=== PATIENT | female | born 1950 | race Caucasian/White ===

== ENCOUNTER 2017-05-10 09:38 | Day surgery (SDC) | payer MEDICARE, BC ==
[~2017-05-10 09:38] MED LIST: Metoclopramide 10 MG/2 ML SDV IV PRN
[2017-05-10] MEDS: Sodium Chloride 0.9% 10 ML Syringe FLUSH PRN (11:00)
[2017-05-10] MEDS: Sodium Chloride 0.9% 1,000 ML IV SCH (11:00)
[2017-05-10] MEDS ORDERED: Propofol 1,000 MG/100 ML SDV ONE (13:30)
[2017-05-10] MEDS ORDERED: Midazolam 1 MG/ML 5 ML SDV ONE (13:30)
--- NOTE | 2017-05-10 14:42 | OR ---
DATE OF OPERATION: 05/10/2017 PREOPERATIVE DIAGNOSES: Surveillance colonoscopy, prior history of polyps, positive family history. POSTOPERATIVE DIAGNOSIS: Normal colonoscopy. OPERATION: Surveillance colonoscopy, prior history of polyps, and positive family history. COMPLICATIONS: None. DRAINS: None. SPECIMENS: None. ESTIMATED BLOOD LOSS: 0. ANESTHESIA: General propofol anesthesia. INDICATION: Ms. Randall is a 66-year-old female here for her 5 yearly surveillance colonoscopy. She has a prior history of polyps and a positive family history for colon cancer. The above-mentioned procedure was explained. The risks, benefits, and complications were explained. The patient understood and agreed and was brought to the operating room. DESCRIPTION OF PROCEDURE: The patient was brought to the operating room, placed in the left lateral decubitus position on the operating room table. Satisfactory general propofol anesthesia was administered. We began by performing a rectal examination, which revealed some anal skin tags externally which suggestive previous external hemorrhoids. I then placed the endoscope by finger introduction into the rectum and subsequently advanced this to the level of the cecum. Cecum was identified by the appendiceal orifice, cecal strap, and ileocecal valve. Careful evaluation of mucosa was performed on withdrawal, which revealed no diverticula, no telangiectasias, no polyps, or neoplastic growths. I did perform a retroflexion maneuver within the rectum, which revealed some old internal hemorrhoidal tag, otherwise no gross internal hemorrhoids identified. The remainder of the rectum was within normal limits. The colon was then subsequently decompressed and the endoscope was withdrawn. The patient tolerated the procedure well. There were no complications. Instrument count was correct. The patient was awoken in the OR and taken to the PACU for recovery. Recommend 5 year followup colonoscopy. CHAYA/CECELIA /[id number]
== END 2017-05-10 14:57 | disposition home or self-care (01) ==
LOC: LB.SDS 09:38
PROVIDERS: ATTEND Surgery
DX: Z12.11 Encounter for screening for malignant neoplasm of colon (principal); K64.8 Other hemorrhoids; Z86.010 Personal history of colon polyps; Z80.0 Family history of malignant neoplasm of digestive organs; M10.9 Gout, unspecified; I10 Essential (primary) hypertension; E88.81 Metabolic syndrome and other insulin resistance; E78.5 Hyperlipidemia, unspecified; Z88.0 Allergy status to penicillin; Z79.82 Long term (current) use of aspirin; Z79.899 Other long term (current) drug therapy; Z98.890 Other specified postprocedural states
CPT/HCPCS: J2250; J3490; J7040; J7050

== ENCOUNTER 2017-06-22 07:01 | Emergency (ER) | payer MEDICARE, BC ==
--- NOTE | 2017-06-22 08:02 | EDM.PDOC ---
ED HPI GENERAL MEDICAL PROBLEM - General Chief Complaint: Syncope Stated Complaint: SYNCOPY Time Seen by Provider: 06/22/17 07:15 Source of Information: Reports: Patient History Limitations: Reports: No Limitations - History of Present Illness INITIAL COMMENTS - FREE TEXT/NARRATIVE: According to patient she woke up in the morning felt fine and she went to work at [employer] in [facility]. As she was cooking in the kitchen, she felt dizzy and weak, felt like she was passing out and soon the feeling went away.The whole episodes lasted for lest than 5 seconds. Pt did not pass out, felt weak. Hence she did come into emergency room. There was no chest pain, palpitations, vertigo, nausea or vomiting asso with it. No fever or chills. In the emergency room pt claims she feels fine. She is not feeling dizzy or tired. Onset: Today Onset Date: 06/22/17 Onset Time: 06:00 Severity: Mild Improves with: Reports: None Worsens with: Reports: None Associated Symptoms: Reports: Weakness. Denies: Confusion, Chest Pain, Cough, Diaphoresis, Fever/Chills, Headaches, Nausea/Vomiting, Rash, Seizure, Shortness of Breath, Syncope - Related Data Allergies Allergy/AdvReac Type Severity Reaction Status Date / Time Fish Containing Products Allergy Respiratory Verified 06/22/17 07:21 Distress Penicillins Allergy Rash Verified 06/22/17 07:21 Home Meds: Home Meds Fenofibrate Nanocrystallized [Fenofibrate] 48 mg PO DAILY 05/09/17 [History] Lisinopril 40 mg PO DAILY 05/09/17 [History] Past Medical History HEENT History: Reports: None Cardiovascular History: Reports: Hypertension [employer] History: Reports: Musculoskeletal History: Reports: Arthritis, Other (See Below) Other Musculoskeletal History: torn meniscus right knee, left knee needs replacement - Infectious Disease History Infectious Disease History: Reports: Chicken Pox, Mumps - Past Surgical History HEENT Surgical History: Reports: Tonsillectomy Social & Family History - Family History Family Medical History: Noncontributory - Caffeine Use Caffeine Use: Reports: Coffee, Soda, Tea ED ROS GENERAL - Review of Systems Review Of Systems: See Below Constitutional: Denies: Fever, Chills HEENT: Denies: Rhinitis, Throat Pain, Throat Swelling Respiratory: Denies: Shortness of Breath, Wheezing, Pleuritic Chest Pain, Cough , Sputum Cardiovascular: Reports: Lightheadedness. Denies: Chest Pain, Dyspnea on Exertion, Edema, Orthopnea, Syncope GI/Abdominal: Denies: Abdominal Pain, Nausea, Vomiting : Denies: Dysuria, Flank Pain, Frequency Musculoskeletal: Denies: Joint Pain, Joint Swelling Skin: Denies: Bruising, Pruritis, Rash, Erythema ED EXAM, GENERAL - Physical Exam Exam: See Below Exam Limited By: No Limitations General Appearance: Alert, WD/WN, No Apparent Distress Eye Exam: Bilateral Eye: EOMI, PERRL Ears: Normal External Exam, Normal Canal, Hearing Grossly Normal, Normal TMs Ear Exam: Bilateral Ear: Auricle Normal, Canal Normal, TM normal Nose: Normal Inspection, Normal Mucosa, No Blood Throat/Mouth: Normal Inspection, Normal Lips, Normal Teeth, Normal Gums, Normal Oropharynx, Normal Voice, No Airway Compromise Head: Atraumatic, Normocephalic Neck: Normal Inspection, Supple, Non-Tender, Full Range of Motion Respiratory/Chest: No Respiratory Distress, Lungs Clear, Normal Breath Sounds, No Accessory Muscle Use, Chest Non-Tender Cardiovascular: Normal Peripheral Pulses, Regular Rate, Rhythm, No Edema, No Gallop, No JVD, No Murmur, No Rub GI/Abdominal: Normal Bowel Sounds, Soft, Non-Tender, No Organomegaly, No Distention, No Abnormal Bruit, No Mass Extremities: Normal Inspection, Normal Range of Motion, Non-Tender, Normal Capillary Refill, No Pedal Edema Neurological: Alert, Oriented, CN II-XII Intact, Normal Cognition, Normal Gait, Normal Reflexes, No Motor/Sensory Deficits Psychiatric: Normal Affect, Normal Mood Course - Vital Signs Text/Narrative:: Pt's Clinical exam is normal. Orthostatic blood pressure appear normal. Also her Blood sugar was 122. Pt's EKG is in normal sinus rhythm. Pt feels fine and happy. CBC and CMP appear normal other than her creat is 1.6. Pt reassured that she might have had slight vaso-vagal episode in the morning. I have not done CT head, as her neuro exam appears normal and pt is not in any discomfort or distress at this point. Pt reassured. advised to drink plenty of fluids and rest. If the symptoms reoccur, advised to follow up in the clinic for recheck of the creatinine. Last Recorded V/S: Last Vital Signs Temp 97.1 F 06/22/17 07:21 Pulse 69 06/22/17 07:21 Resp 18 06/22/17 07:21 BP 130/66 06/22/17 07:21 Pulse Ox 100 06/22/17 07:21 - Orders/Labs/Meds Orders: Active Orders 24 hr Category Date Time Status EKG Documentation Completion [RC] ASDIRECTED Care 06/22/17 07:30 Active Labs: Laboratory Tests 06/22/17 06/22/17 06/22/17 Range/Units 06:59 07:30 07:30 WBC 8.4 (4.0-11.0) K/uL RBC 4.39 (3.80-5.80) M/uL Hgb 13.1 (11.5-16.5) g/dL Hct 40.0 (37.0-47.0) % MCV 91 (76-96) fL MCH 29.8 (27.0-32.0) pg MCHC 32.8 (31.0-35.0) g/dL RDW 13.1 (11.0-16.0) % Plt Count 212 (150-500) K/uL MPV 9.2 (6.0-10.0) fL Neut % (Auto) 49.2 (45.0-70.0) % Lymph % (Auto) 41.3 H (20.0-40.0) % Linn % (Auto) 6.1 (3.0-10.0) % Eos % (Auto) 2.7 (1.0-5.0) % Baso % (Auto) 0.7 H (0.0-0.5) % Neut # (Auto) 4.13 (2.00-7.50) K/uL Lymph # (Auto) 3.47 (1.50-4.00) K/uL Linn # (Auto) 0.51 (0.20-0.80) K/uL Eos # (Auto) 0.23 (0.04-0.40) K/uL Baso # (Auto) 0.06 (0.02-0.10) K/uL Sodium 140 (136-145) mmol/L Potassium 5.2 H (3.5-5.1) mmol/L Chloride 105 (98-107) mmol/L Carbon Dioxide 25.8 (21.0-32.0) mmol/L Anion Gap 14.4 (5.0-15.0) mmol/L BUN 32 H (8-26) mg/dL Creatinine 1.66 H (0.55-1.02) mg/dL Est Cr Clr Drug Dosing TNP Estimated GFR (MDRD) 31 L (>60) MLS/MIN BUN/Creatinine Ratio 19.3 (6-25) Glucose 118 H (74-100) mg/dL POC Glucose 122 H (74-110) mg/dL Calcium 9.8 (8.5-10.1) mg/dL Total Bilirubin 0.3 D (0.0-1.0) mg/dL AST 23 (15-37) U/L ALT 34 (12-78) U/L Alkaline Phosphatase 60 (46-116) U/L Total Protein 7.9 (6.4-8.2) g/dL Albumin 4.2 (3.4-5.0) g/dL Globulin 3.7 (2.2-4.2) g/dL Albumin/Globulin Ratio 1.1 (0.8-2.0) Departure - Departure Time of Disposition: 08:30 Disposition: Home, Self-Care 01 Condition: Good Clinical Impression: Vasovagal episode - Discharge Information Instructions: Near-Syncope, Vasovagal Syncope, Adult Referrals: PCP,None [Primary Care Provider] - Forms: ED Department Discharge Additional Instructions: Follow up at the clinic in 1 week to recheck you kidney function. Drink plenty of fluids-at least 6 glasses a day. If you don't feel well, rest today. - Problem List & Annotations (1) Vasovagal episode SNOMED Code(s): 864573869 Code(s): R55 - SYNCOPE AND COLLAPSE Status: Acute Current Visit: No - Problem List Review Problem List Initiated/Reviewed/Updated: Yes - My Orders Last 24 Hours: My Active Orders 06/22/17 07:30 EKG Documentation Completion [RC] ASDIRECTED - Assessment/Plan Last 24 Hours: My Active Orders 06/22/17 07:30 EKG Documentation Completion [RC] ASDIRECTED Assessment:: Vaso-vagal episode Plan: Pt's Clinical exam is normal. Orthostatic blood pressure appear normal. Also her Blood sugar was 122. Pt's EKG is in normal sinus rhythm. Pt feels fine and happy. CBC and CMP appear normal other than creatinine of 1.6. Pt reassured that she might have had slight vaso-vagal episode in the morning. I have not done CT head, as her neuro exam appears normal and pt is not in any discomfort or distress at this point. Pt reassured. advised to drink plenty of fluids and rest. If the symptoms reoccur, advised to follow up in the clinic next week to recheck creatinine.
== END 2017-06-22 08:32 | disposition home or self-care (01) ==
LOC: LB.ED 07:01
DX: R55 Syncope and collapse (principal); I10 Essential (primary) hypertension; M19.90 Unspecified osteoarthritis, unspecified site; Z79.899 Other long term (current) drug therapy; Z88.0 Allergy status to penicillin; Z91.013 Allergy to seafood
CPT/HCPCS: 36415; 80053; 82962; 85025; 93005; 99283; 99284-25

== ENCOUNTER 2024-08-06 17:13 | Inpatient (IN) | payer MEDICARE ==
[2024-08-06] MEDS ORDERED: Ondansetron 4 MG/2 ML SDV IVPUSH PRN (18:27)
[2024-08-06] MEDS: Sodium Chloride 0.9% 1,000 ML IV SCH ×2 (18:32→22:25)
[2024-08-06] MEDS: Simvastatin 40 MG Tab PO SCH (20:52)
[2024-08-06 21:07] LABS: APPEARANCE,URINE CLEAR (CLEAR); BILIRUBIN,URINE NEGATIVE (NEGATIVE); COLOR,URINE YELLOW; GLUCOSE,URINE NEGATIVE (NEGATIVE); KETONES,URINE NEGATIVE (NEGATIVE); LEUKOCYTE ESTERASE,URINE TRACE (NEGATIVE); NITRITE,URINE NEGATIVE (NEGATIVE); OCCULT BLOOD,URINE NEGATIVE (NEGATIVE); PH,URINE 5.5 (5.0-8.0); PROTEIN,URINE NEGATIVE (NEGATIVE); UROBILINOGEN,URINE 0.2 E.U./dL (0.2-1.0)
[2024-08-06 21:11] LABS: EPITHELIAL CELLS,URINE OCCASIONAL /HPF; MUCUS,URINE OCCASIONAL /HPF; RBC,URINE 0-5 /HPF; WBC CLUMPS,URINE RARE /HPF
[2024-08-06 21:19] LABS: ANION GAP 13.6 mmol/L (5.0-15.0); CALCIUM 9.6 mg/dL (8.5-10.1); CARBON DIOXIDE,CO2 23.3 mmol/L (21.0-32.0); CREATININE 2.67 mg/dL (0.55-1.02); EST CRCL DRUG DOSING (CG) 17.57 mL/min; POTASSIUM,K 4.9 mmol/L (3.5-5.1)
[2024-08-06] MEDS ORDERED: Melatonin 10 MG Cap PO PRN (21:29)
[2024-08-07] MEDS: Sodium Chloride 0.9% 1,000 ML IV SCH (03:30)
[2024-08-07] MEDS: amLODIPine 5 MG Tab PO SCH (07:31)
[2024-08-07] MEDS: Fenofibrate,Micronized 67 MG Cap PO SCH (07:31)
[2024-08-07] MEDS: Aspirin 81 MG Tab.Chew PO SCH (07:49)
[2024-08-07 07:52] LABS: BASOPHILS ABSOLUTE AUTO 0.03 K/uL (0.02-0.10); BASOPHILS PERCENT AUTO 0.4 % (0.0-0.5); EOSINOPHILS ABSOLUTE AUTO 0.22 K/uL (0.04-0.40); EOSINOPHILS PERCENT AUTO 2.7 % (1.0-5.0); HEMATOCRIT 37.5 % (37.0-47.0); HEMOGLOBIN 12.2 g/dL (11.5-16.5); LYMPHOCYTES ABSOLUTE AUTO 5.19 K/uL (1.50-4.00); LYMPHOCYTES PERCENT AUTO 63.9 % (20.0-40.0); MEAN CORPUSCULAR HGB CONC 32.5 g/dL (31.0-35.0); MEAN CORPUSCULAR VOLUME 92 fL (76-96); MEAN PLATELET VOLUME 9.8 fL (6.0-10.0); MONOCYTES ABSOLUTE AUTO 0.49 K/uL (0.20-0.80); NEUTROPHILS ABSOLUTE AUTO 2.19 K/uL (2.00-7.50); PLATELET COUNT,PLT 180 K/uL (150-500); RED BLOOD CELL COUNT 4.06 M/uL (3.80-5.80); WHITE BLOOD CELL COUNT,WBC 8.1 K/uL (4.0-11.0)
[2024-08-07] MEDS ORDERED: Hydrochlorothiazide 12.5 MG Cap PO SCH (08:00)
[2024-08-07 08:43] LABS: A/G RATIO 1.2 (0.8-2.0); ALBUMIN 3.5 g/dL (3.4-5.0); ANION GAP 11.7 mmol/L (5.0-15.0); BILIRUBIN TOTAL 0.6 mg/dL (0.0-1.0); BUN/CREATININE RATIO 28.4 (6-25); CARBON DIOXIDE,CO2 24.7 mmol/L (21.0-32.0); CREATININE 1.97 mg/dL (0.55-1.02); EST CRCL DRUG DOSING (CG) 23.81 mL/min; POTASSIUM,K 5.4 mmol/L (3.5-5.1); PROTEIN TOTAL,TP 6.4 g/dL (6.4-8.2)
[2024-08-07 13:24] VITALS: BP 126/66; PULSE 61
== END 2024-08-07 12:50 | disposition home or self-care (01) | DRG 641 ==
LOC: LB.ED 17:13 → LB.MS 18:32 → UNDOADMIN 18:45 → LB.MS 18:45
PROVIDERS: ADMIT Surgery; ATTEND Surgery
DX: E86.0 Dehydration (principal); E87.5 Hyperkalemia; I12.9 Hypertensive chronic kidney disease with stage 1 through stage 4 chronic kidney disease, or unspecified chronic kidney disease; N18.30 Chronic kidney disease, stage 3 unspecified; E78.5 Hyperlipidemia, unspecified; Z77.22 Contact with and (suspected) exposure to environmental tobacco smoke (acute) (chronic); I87.8 Other specified disorders of veins; E66.9 Obesity, unspecified; Z79.899 Other long term (current) drug therapy; Z68.33 Body mass index [BMI] 33.0-33.9, adult
CPT/HCPCS: 36415; 71046; 80048; 80053; 81001; 83880; 85025; 93005; 99222; 99238; 99284; A9270-GY; J7030

== ENCOUNTER 2024-08-18 10:43 | Emergency (ER) | payer MEDICARE ==
[2024-08-18] MEDS ORDERED: Sodium Chloride 0.9% 10 ML Syringe FLUSH PRN (11:17)
[2024-08-18 11:45] LABS: CARBON DIOXIDE,CO2 26.6 mmol/L (21.0-32.0); CHLORIDE,CL 105.0 mmol/L (98-107); CREATININE 2.45 mg/dL (0.55-1.02); EST CRCL DRUG DOSING (CG) 19.14 mL/min; ESTIMATED GFR 20.0 mL/min (>60); GLUCOSE RANDOM 140.0 mg/dL (74-100); POTASSIUM,K 5.8 mmol/L (3.5-5.1); SODIUM,NA 140.0 mmol/L (136-145)
[2024-08-18 11:47] LABS: BLOOD UREA NITROGEN,BUN 54.0 mg/dL (8-26)
[2024-08-18] MEDS: Sodium Polystyrene Sulfonate 15 GM/60 ML Susp 60 ML Bot PO ONE (12:06)
[2024-08-18] MEDS: Albuterol 0.083% 2.5 MG/3 ML Neb Soln NEB ONE (12:56)
[2024-08-18] MEDS: Calcium Gluconate 10% 1 GM/10 ML SDV IVPUSH ONE (12:56)
== END 2024-08-18 13:25 | disposition home or self-care (01) ==
LOC: LB.ED 10:43
DX: N18.9 Chronic kidney disease, unspecified (principal); E87.5 Hyperkalemia; M19.90 Unspecified osteoarthritis, unspecified site; Z88.0 Allergy status to penicillin; Z91.013 Allergy to seafood; Z79.899 Other long term (current) drug therapy; Z79.82 Long term (current) use of aspirin
CPT/HCPCS: 36415; 80048; 83735; 93005; 93010; 99284; 99285; A9270-GY